=== PATIENT | male | born 1990 | race American Indian/Alaskan Native ===

== ENCOUNTER 2016-12-19 09:09 | Emergency (ER) | payer OTHER ==
[2016-12-19 09:37] LABS: Basophils % (Auto) 0.8 % (0.0-1.8); Eosinophils % (Auto) 0.2 % (0.0-4.3); Hemoglobin 14.3 gm/dl (11.8-15.2); Mean Corpuscular HGB Conc 33 % (32-34); Mean Corpuscular Hemoglobin 30 pg (28-32); Mean Corpuscular Volume 91 fl (84-94); Platelet Count 216 K/mm3 (140-440); Red Blood Count 4.73 M/mm3 (3.65-5.03); Red Cell Distribution Width 13.6 % (13.2-15.2); White Blood Count 4.6 K/mm3 (4.5-11.0)
[2016-12-19 10:05] LABS: Anion Gap 18 mmol/L; BUN/Creatinine Ratio 13.07; Blood Urea Nitrogen 17 mg/dL (9-20); Calcium 10.2 mg/dL (8.4-10.2); Carbon Dioxide 28 mmol/L (22-30); Chloride 96.3 mmol/L (98-107); Glucose 94 mg/dL (75-100); Sodium 138 mmol/L (137-145)
--- NOTE | 2016-12-19 10:18 | Emergency Department Report ---
ED Psych HPI - General Chief Complaint: Psych Stated Complaint: LACERATION ONLT SIDE OF FACE Time Seen by Provider: 12/19/16 10:00 Source: patient, RN notes reviewed Mode of arrival: Ambulatory Limitations: No Limitations - History of Present Illness Initial Comments: 26-year-old male presents to the emergency department complaining of bugs underneath his skin. Patient states this started 3 years ago when he was bitten by a bug at a hotel in [place] on his left leg. He states he feels millions of bugs crawling under his skin. He states on his face, it looks like ingrown hairs. He states that when you try and pull one of them out with tweezers it is actually a bug. He has scratched the right side of his face repeatedly trying to get the bugs out. There are no other complaints. -: Gradual, year(s) (3) Associated Psychiatric Symptoms: visual hallucinations History of same: No Quality: constant Improves With: none Worsens With: none Associated Symptoms: denies other symptoms Treatments Prior to Arrival: none - Related Data Home Medications Medication Instructions Recorded Confirmed Last Taken Unobtainable 12/19/16 12/19/16 Unknown Allergies Allergy/AdvReac Type Severity Reaction Status Date / Time No Known Allergies Allergy Unverified 12/19/16 09:17 ED Review of Systems ROS: Stated complaint: LACERATION ONLT SIDE OF FACE Other details as noted in HPI Comment: All other systems reviewed and negative Psychiatric: visual hallucinations. denies: auditory hallucinations, homicidal thoughts, suicidal thoughts ED Past Medical Hx - Past Medical History Previous Medical History?: No - Surgical History Past Surgical History?: No - Family History Family history: no significant - Social History Smoking Status: Unknown if ever smoked - Medications Home Medications: Home Medications Medication Instructions Recorded Confirmed Last Taken Type Unobtainable 12/19/16 12/19/16 Unknown History ED Physical Exam - General Limitations: No Limitations General appearance: alert, in no apparent distress - Head Head exam: Present: atraumatic, normocephalic - Eye Eye exam: Present: normal appearance, PERRL, EOMI - ENT ENT exam: Present: normal exam, normal orophraynx, mucous membranes moist - Neck Neck exam: Present: normal inspection, full ROM. Absent: tenderness - Respiratory Respiratory exam: Present: normal lung sounds bilaterally. Absent: respiratory distress - Cardiovascular Cardiovascular Exam: Present: regular rate, normal rhythm, normal heart sounds - GI/Abdominal GI/Abdominal exam: Present: soft, normal bowel sounds. Absent: distended, tenderness - Extremities Exam Extremities exam: Present: normal inspection, full ROM. Absent: tenderness - Back Exam Back exam: Present: normal inspection, full ROM. Absent: tenderness - Neurological Exam Neurological exam: Present: alert, oriented X3. Absent: motor sensory deficit - Psychiatric Psychiatric exam: Present: agitated, anxious. Absent: homicidal ideation, suicidal ideation - Skin Skin exam: Present: warm, dry, other (Right cheek with extensive excoriations extending from the zygomatic arch to the mandible and from the angle of the mandible anterior to the corner of the mouth. Oozing blood noted. No definite laceration.) ED Course Vital Signs 12/19/16 12/19/16 12/19/16 09:17 10:11 10:20 Temperature 98.3 F Pulse Rate 112 H 90 Respiratory 20 20 18 Rate Blood Pressure 141/97 Blood Pressure 130/100 [Left] O2 Sat by Pulse 100 99 Oximetry ED Medical Decision Making - Lab Data Result diagrams: 12/19/16 09:23 12/19/16 09:23 - Medical Decision Making Lab results reviewed. Patient has been medically cleared. Form 1013 has been signed and placed on the patient's chart. Patient is awaiting mental health evaluation for inpatient placement. - Differential Diagnosis psychosis, schizophrenia Critical care attestation.: If time is entered above; I have spent that time in minutes in the direct care of this critically ill patient, excluding procedure time. ED Disposition Clinical Impression: Psychosis Qualifiers: Psychosis type: brief psychotic disorder Qualified Code(s): F23 - Brief psychotic disorder Disposition: DC/TX PSY HOSP/PSY UNIT Is pt being admited?: No Condition: Stable Referrals: PRIMARY CARE, [Primary Care Provider] - 3-5 Days Time of Disposition: 12:51
[2016-12-19] MEDS ORDERED: ATIVAN IV ONE (10:45)
[2016-12-19] MEDS ORDERED: HALDOL IV ONE (10:45)
[2016-12-19 10:48] LABS: Urine Drugs of Abuse Note Disclamer
[2016-12-20 09:50] LABS: Bacteria,Urine 1+ /HPF (Negative); Bilirubin,Urine NEG (Negative); Blood,Urine NEG (Negative); Ketones,Urine 20 mg/dL (Negative); Leukocyte Esterase,Urine MOD (Negative); Mucus,Urine 3+ /HPF; Nitrite,Urine NEG (Negative); Urobilinogen,Urine < 2.0 mg/dL (<2.0)
--- NOTE | 2016-12-20 18:19 | Consultation ---
History of Present Illness - Reason for Consult Consult date: 12/20/16 Reason for consult: formication Medications and Allergies Allergies Allergy/AdvReac Type Severity Reaction Status Date / Time No Known Allergies Allergy Verified 12/20/16 05:24 Home Medications Medication Instructions Recorded Confirmed Last Taken Type Unobtainable 12/19/16 12/19/16 Unknown History Mental Status Exam - Vital signs Last Vital Signs Temp 98.0 F 12/20/16 02:52 Pulse 84 12/20/16 06:57 Resp 18 12/20/16 06:57 BP 110/75 12/20/16 06:57 Pulse Ox 99 12/20/16 06:57 Results Result Diagrams: 12/19/16 09:23 12/19/16 09:23 Abnormal lab results 12/20/16 Range/Units 09:27 Urine WBC (Auto) 24.0 H (0.0-6.0) /HPF All other labs normal. Assessment and Plan Assessment and plan: CHIEF COMPLAINT IN PATIENTS WORDS: "These bugs were crawling on my face" HISTORY OF PRESENT ILLNESS REQUIRING ADMISSION TO INPATIENT LEVEL OF CARE: (Describe the onset of Illness, Intensity of Symptoms, and Circumstances Leading to Admission) This is a 26 year-old domiciled male who reports no formal psychiatric history now presenting to the ER with complaints of formication. Patient was using alcohol and bleach to kill the bugs on his face. Consequently, patient has sustained a chemical injury to the face. Urine tox is negative; however, patient does report that he was engaging in fairly regular alcohol use and has been recently around methamphetamines. Patient notes that he was at a gathering with friends were alcohol and methamphetamines were being used. He denies the use of any methamphetamines, cocaine and other stimulants or hallucinogens and the current moment. With his UDS being negative it's unclear what substance she was actually using. He does note a previous episode of this type of situation occurring several years ago while he lived in [place]. PSYCHIATRIC REVIEW OF SYSTEMS: Substance: 1. Patient's reports unsuccessful attempts to cut back in the past. 2. Patient endorses craving. 3. Patient reports continued use despite physical and/or psychological problems. 4. Patient reports withdrawal in the past. 5. Patient reports tolerance. 6. Patient reports spending a great deal of time either trying to obtain, use or recover from the effects of drugs. Patient denies any other addictions other than alcohol. Depression: sad/low moods, sleep difficulties Екатерина: Denies Psychosis: No visual hallucinations reported currently. Patient was recently paranoid and expressing tactile hallucinations as noted above Anxiety/ OCD/ PTSD: Denies Suicidality: Denies Other Self-Injurious Behavior: none currently, no SIB noted recently Violent/ Aggressive Behavior: none reported CURRENT MEDICATIONS: ( Psychiatric and Non-psychiatric ) none ALLERGIES: NKDA PAST PSYCHIATRIC HISTORY: ( Prior Treatment, Precipitating Factors, Diagnosis, and Course of Treatment ) Inpatient: denies Outpatient: None Prior Suicide Attempts: denies Prior SIB: denies PAST PSYCHIATRIC MEDICATION TRIALS: None reported MEDICAL HISTORY: (Chronic and Acute Illnesses, Current Medical Treatment, Recent Hospitalizations) none HISTORY OF TRAUMA/ABUSE: Denies DRUG / ALCOHOL ABUSE HISTORY: EtOH free for times a week. Patient uses small amounts of hard liquor with a sixpack of beer Detoxification / Withdrawal: currently having some anxiety. No tremor noted. no formication noted. no autonomic instability noted SOCIAL HISTORY: (Educational Level, Employment, Support System, Interpersonal Relationships) Lives with his family in a town home. FAMILY HISTORY: Psychiatric/Substance Abuse Unknown MENTAL STATUS EXAM: Consciousness: alert and responding to external stimuli General Appearance: casually dressed, in acute distress Eye Contact: limited Attitude / Behavior: cooperative Sensorium: clear Psychomotor & Musculoskeletal Activity: WNL Gait/Station: normal Mood: fine Affect: constricted Speech / Language: normal Thought Processes: organized, logical, linear Thought Content: no SI, no HI Perception: no AVH Orientation: person, place, time and situation Concentration/Attention WORLD backwards: DLROW Memory Immediate Digit Span (6-7-5-9-3-1-5): [id number] Memory Recent (Objects: Lamp, Umbrella, and Telephone) Patient Response: 3/3 Memory Remote (Name as many presidents as you can starting with current one and going backwards) Patient Response: 3 Judgment What would you do if you smelled smoke in a crowded movie theater?: fair Insight: fair Intelligence Vocabulary, general fund of knowledge, educational level : Average Capacity of ADLs: Independent STRENGTHS: Insight into presentation PSYCHOSOCIAL AND ENVIRONMENTAL STRESSORS: Substance abuse ADMITTING DIAGNOSES Psychiatric: EtOH Abuse Evidence for the following: Substance Induced Psychotic Disorder Rule Out with futher longitudinal data: Bipolar Disorder with psychosis Plan: - Currently the patient does not continue to meet criteria to remain on 1013 - Monitor patient for withdrawal symptoms - Consider starting a CIWA protocol - Plan to reevaluate and make further recommendations
--- NOTE | 2016-12-20 19:12 | Event Note ---
Date: 12/20/16 The patient is seen and examined with Dr. Suarez of psychiatry. The patient's urine toxicology screen comes back positive for multiple agents. The patient is currently alert and oriented 3. He is clinically sober, has a GCS of 15, NIH score of 0, he is not homicidal, he is not suicidal, he does not have access to guns or firearms. At this point in time, patient does not meet 1013 criteria, and Dr. Suarez independently agrees. The patient is instructed to discontinue consumption of intoxicating illegal substances. He has a superficial friction burn to his right cheek, he will be discharged with Aquaphor, and instructed to follow-up with outpatient dermatology and/or plastic surgery. Return precautions are extensively reviewed. Vital Signs 12/19/16 12/19/16 12/19/16 09:17 10:11 10:20 Temperature 98.3 F Pulse Rate 112 H 90 Respiratory 20 20 18 Rate Blood Pressure 141/97 Blood Pressure 130/100 [Left] O2 Sat by Pulse 100 99 Oximetry 12/19/16 12/20/16 12/20/16 22:15 02:52 06:57 Temperature 98.0 F Pulse Rate 77 71 84 Respiratory 18 18 18 Rate Blood Pressure Blood Pressure 117/74 103/71 110/75 [Left] O2 Sat by Pulse 99 98 99 Oximetry Labs 12/19/16 12/19/16 12/19/16 09:23 09:23 09:23 WBC 4.6 RBC 4.73 Hgb 14.3 Hct 43.0 MCV 91 MCH 30 MCHC 33 RDW 13.6 Plt Count 216 Lymph % (Auto) 40.6 H Crook % (Auto) 5.6 Eos % (Auto) 0.2 Baso % (Auto) 0.8 Lymph # 1.9 Crook # 0.3 Eos # 0.0 Baso # 0.0 Seg Neutrophils % 52.8 Seg Neutrophils # 2.4 Sodium 138 Potassium 4.0 Chloride 96.3 L Carbon Dioxide 28 Anion Gap 18 BUN 17 Creatinine 1.3 Estimated GFR > 60 BUN/Creatinine Ratio 13.07 Glucose 94 Calcium 10.2 Urine Color Urine Turbidity Urine pH Ur Specific [place] Urine Protein Urine Glucose (UA) Urine Ketones Urine Blood Urine Nitrite Urine Bilirubin Urine Urobilinogen Ur Leukocyte Esterase Urine WBC (Auto) Urine RBC (Auto) Urine Bacteria (Auto) Urine Mucus Urine Opiates Screen Urine Methadone Screen Ur Barbiturates Screen Ur Phencyclidine Scrn Ur Amphetamines Screen U Benzodiazepines Scrn Urine Cocaine Screen U Marijuana (THC) Screen Drugs of Abuse Note Plasma/Serum Alcohol < 0.01 12/19/16 12/20/16 10:23 09:27 WBC RBC Hgb Hct MCV MCH MCHC RDW Plt Count Lymph % (Auto) Cro[place] % (Auto) Eos % (Auto) Baso % (Auto) Lymph # Cro[place] # Eos # Baso # Seg Neutrophils % Seg Neutrophils # Sodium Potassium Chloride Carbon Dioxide Anion Gap BUN Creatinine Estimated GFR BUN/Creatinine Ratio Glucose Calcium Urine Color Yellow Urine Turbidity Clear Urine pH 5.0 Ur Specific [place] 1.029 Urine Protein 30 mg/dl Urine Glucose (UA) Neg Urine Ketones 20 Urine Blood Neg Urine Nitrite Neg Urine Bilirubin Neg Urine Urobilinogen < 2.0 Ur Leukocyte Esterase Mod Urine WBC (Auto) 24.0 H Urine RBC (Auto) 4.0 Urine Bacteria (Auto) 1+ Urine Mucus 3+ Urine Opiates Screen Presumptive negative Urine Methadone Screen Presumptive negative Ur Barbiturates Screen Presumptive negative Ur Phencyclidine Scrn Presumptive negative Ur Amphetamines Screen Presumptive positive U Benzodiazepines Scrn Presumptive negative Urine Cocaine Screen Presumptive positive U Marijuana (THC) Screen Presumptive positive Drugs of Abuse Note Disclamer Plasma/Serum Alcohol
[2016-12-20 19:54] VITALS: BP 122/76
== END 2016-12-20 19:40 | disposition home or self-care (01) ==
LOC: ED 09:09 → EEVIPCON 09:09 → ED 12-20 19:40
DX: F23 Brief psychotic disorder (principal)
CPT/HCPCS: 36415; 80048; 80307; 81001; 85025; 96374; 96375; 99285; G0480; J1630; J2060; 80320